=== PATIENT | male | born 1990 | race Asian ===

== ENCOUNTER 2017-02-23 12:19 | Emergency (ER) | payer OTHER ==
[2017-02-23] MEDS ORDERED: LIDOCAINE 2% JELLY 20 ML (UROJECT) UR ONE (13:19)
[2017-02-23] MEDS ORDERED: LIDOCAINE 2% JELLY 20 ML (UROJECT) ONE (13:20)
--- NOTE | 2017-02-23 13:49 | UCPHY ---
H & P Patient Type: New Chief Complaint Nursing Narrative: c/o not being able to urinate- last void 0700 this am - has been drinking a lot of fluids - denies trauma HPI/ROS: CHIEF COMPLAINT: Urinary retention History by patient HISTORY OF PRESENT ILLNESS: 26-year-old otherwise healthy man presents complaining of inability to urinate since 7 this morning. Patient denies any fever or back pain but states that he has lots of pressure in his bladder area. He has had some over low flow incontinence. He denies any penile discharge or lesions. He denies any medications including [id number] cough or cold medicine or Benadryl. He denies any drug use including cocaine, methamphetamines, amphetamines or opiates. In the past he has used testosterone supplements. He has had this happen to him 1 time before but it resolved before he needed to seek medical attention. This was approximately 1 month ago. REVIEW OF SYSTEMS: As in HPI, and all other systems reviewed and are negative - Personal History Current Tetanus Diphtheria and Acellular Pertussis (TDAP): Yes - Medical/Surgical History Other PMH: denies - Family History Significant Family History: No pertinent family hx - Social History Alcohol Use: None Drug Use: None - Physical Exam Exam: General Appearance: Alert, uncomfortable appearing. Eyes: Pupils equal and round no pallor or injection. ENT, Mouth: Mucous membranes moist. Respiratory: Normal, effort, There are no retractions, lungs are clear to auscultation. Cardiovascular: Regular rate and rhythm. Gastrointestinal: Abdomen is soft with suprapubic distention and tenderness,, no masses, bowel sounds normal. Back: No CVA tenderness . Uncircumcised, no lesions, normal scrotum and testicles Neurological: Awake, alert and oriented x 3, no pronator drift, normal gait, no pronator drift Skin: Warm and dry, no rashes. Musculoskeletal: Neck is supple nontender. Extremities are symmetrical, full range of motion. Psychiatric: Patient has normal affect, there is no agitation. Constitutional: Initial Vital Signs Temperature (C) 36.6 C 02/23/17 12:27 Heart Rate 85 02/23/17 12:27 Respiratory Rate 18 02/23/17 12:27 Blood Pressure 119/84 H 02/23/17 12:27 O2 Sat (%) 96 02/23/17 12:27 O2 Delivery Mode Room Air Allergies/Adverse Reactions: No Known Allergies Allergy (Unverified 02/23/17 12:27) Home Medications: Medication Instructions Recorded NK [No Known Home Meds] 02/23/17 Medical Decision Making Procedures: Mayorga catheter placement: Indication urinary retention. Patient gave verbal consent for the procedure. The research instrumentation technician and nurse made [address] Mayorga unsuccessfully. Therefore I tried past he 18 Finnish coude catheter patient had significant pain and we are unable to pass a catheter past the prostate. I then tried again with a 16 Finnish regular catheter as there are no other coude catheter is available again this was unsuccessful ED Course/Re-evaluation: Patient presented with acute urinary retention of unclear etiology as there is no medications or underlying medical conditions to explain the cause in this otherwise healthy young man. The nurses and I tried to place Mayorga catheter unsuccessfully after 4 attempts. Patient was anesthetized with Uro jet lidocaine for the procedure. Patient declined IV pain medications initially. I spoke with the urologist and the ED doctor at [facility] with plans to transfer him there for further intervention. While awaiting transfer, shortly after that 2nd Mayorga placement attempt by me and application of the lidocaine the patient was able to void partially on his own. This gave him significant relief. He was unable to stand up and completely void on his own without difficulty. Urinalysis showed microscopic hematuria but no evidence of infection. I suspect the hematuria is due to the traumatic Mayorga placement however I am recommending follow-up for recheck to make sure that there is no underlying hematuria. In addition given that there is no cause for the patient' s urinary retention in this otherwise healthy young man he will need urological follow-up to determine cause of his urinary retention as this is the 2nd episode. Patient was discharged home in stable condition with urology follow- up. - Data Points Laboratory Results: 02/23/17 13:50 Urine Color YELLOW Urine Appearance CLEAR Urine pH 6.0 (5.0-7.5) Ur Specific [place] <= 1.005 (1.002-1.030) Urine Protein NEGATIVE (NEGATIVE) Urine Ketones NEGATIVE (NEGATIVE) Urine Blood 3+ H (NEGATIVE) Urine Nitrate NEGATIVE (NEGATIVE) Urine Bilirubin NEGATIVE (NEGATIVE) Urine Urobilinogen 0.2 EU EU (0.2-1.0) Ur Leukocyte Esterase NEGATIVE (NEGATIVE) Urine RBC 15-25 /hpf H /hpf (0-3) Urine WBC 0-1 /hpf /hpf (0-3) Ur Epithelial Cells TRACE /lpf /lpf (NONE-1+) Urine Bacteria TRACE /hpf H /hpf (NONE SEEN) Urine Mucus TRACE /lpf /lpf (NONE-1+) Ur Culture Indicated? NOT INDICATED (NI) Urine Glucose NEGATIVE (NEGATIVE) Medications Given: Discontinued Medications Lidocaine (Uroject Lidocaine 2% Jelly) 20 ml UR EDNOW ONE Stop: 02/23/17 13:20 Last Admin: 02/23/17 13:21 Dose: 20 ml Departure - Departure Disposition: Home, Routine, Self-Care Clinical Impression: Acute urinary retention Condition: Good Instructions: Urinary Retention in Men (ED) Additional Instructions: You were seen by Dr. Jennie Dumas today. Return for any worsening or new concerns. Please follow up with the urologist about your difficulty urinating. Please also had them recheck her urine to make sure that the microscopic blood we saw today has resolved. Return for any recurrence or new problems. Referrals: NONE *PRIMARY CARE P,. [Primary Care Provider] - As per Instructions Abdoulaye Cline MD [Medical Doctor] - As per Instructions - PQRS PQRS Measurement: NA
[2017-02-23 13:57] LABS: COLOR YELLOW; LEUKOCYTE ESTERASE,URINE NEGATIVE (NEGATIVE); NITRITE,URINE NEGATIVE (NEGATIVE)
[2017-02-23 14:06] LABS: BACTERIA TRACE /hpf (NONE SEEN); MUCUS TRACE /lpf (NONE-1+); RBC,URINE 15-25 /hpf (0-3); WBC,URINE 0-1 /hpf (0-3)
[2017-02-23 14:08] VITALS: O2SAT 98
[2017-02-23 15:09] VITALS: BP 127/67; PULSE 88; RESP 16; TEMP 98.1
== END 2017-02-23 15:09 | disposition home or self-care (01) ==
LOC: CED 12:19
DX: R33.9 Retention of urine, unspecified (principal)
CPT/HCPCS: 81003-PO; 81015-PO; 99204-PO; G0463-PO